=== PATIENT | male | born 1950 | race Two or more races ===

== ENCOUNTER 2021-08-24 06:05 | Inpatient (IN) | payer OTHER ==
[~2021-08-24] VITALS: Ht 172.7 cm; Wt 80.8 kg
[2021-08-24 08:46] LABS: Basophils # (auto) 0 10 ^3/uL (0-0.2); Basophils % (auto) 0.1 % (0.0-2.0); Eosinophils # (auto) 0 10 ^3/uL (0-0.8); Hematocrit 45.7 % (41.0-53.0); Hemoglobin 15.2 g/dL (13.5-17.5); Lymphocytes # (auto) 0.7 10 ^3/uL (0.4-5.4); Lymphocytes % (auto) 13.5 % (10.0-50.0); Mean Corpuscular Hemoglobin 28.5 pg (28.0-32.0); Mean Corpuscular Hgb Conc. 33.2 g/dL (32.0-36.0); Mean Corpuscular Volume 85.8 fL (80.0-100.0); Monocytes # (auto) 0.6 10 ^3/uL (0-1.3); Monocytes % (auto) 10.7 % (0.0-12.0); Neutrophils # (auto) 4.2 10 ^3/uL (1.6-8.6); Neutrophils % (auto) 75.7 % (37.0-80.0); Nucleated Red Blood Cells % 0.2 %; Red Blood Cells 5.33 10^6/uL (4.5-5.90); White Blood Cell 5.5 10^3/uL (4.4-10.8)
[2021-08-24 08:53] LABS: Anion Gap 11 (5-15); BUN/Creatinine Ratio 22.8; Blood Urea Nitrogen 29 mg/dL (7-18); Carbon Dioxide 17 mmol/L (21-32); Chloride 111 mmol/L (98-107); Glucose 109 mg/dL (74-106); Potassium 3.5 mmol/L (3.5-5.1); Sodium 139 mmol/L (136-145)
[2021-08-24 08:54] LABS: Alanine Aminotransferase 29 U/L (16-61); Albumin 2.8 g/dL (3.4-5.0); Aspartate Aminotransferase 42 U/L (15-37); Calcium 8.6 mg/dL (8.5-10.1); GFR African American 72 mL/min; GFR Non-African American 60 mL/min
[2021-08-24 08:59] LABS: Alkaline Phosphatase 64 U/L (45-117); Bilirubin, Total 0.7 mg/dL (0.2-1.0); Total Protein 7.2 g/dL (6.4-8.2)
[2021-08-24] MEDS ORDERED: NITROGLYCERIN 0.4 MG SL TAB SL PRN (14:45)
[2021-08-24] MEDS ORDERED: MORPHINE SULFATE INJECTION 2 MG/ML SYRG IV PRN (14:45)
[2021-08-24] MEDS ORDERED: LACTATED RINGER'S 1,000 ML IV ONE (16:30)
[2021-08-24] MEDS ORDERED: ONDANSETRON HCL 4 MG/2 ML VIAL IV PRN (16:30)
[2021-08-24] MEDS ORDERED: ONDANSETRON HCL 4 MG/2 ML VIAL IV ONE (16:30)
[2021-08-24] MEDS ORDERED: PANTOPRAZOLE 40 MG/10 ML VIAL INJ IV ONE (17:15)
[2021-08-24] MEDS ORDERED: FINA5TAB4 PO (17:53)
[2021-08-24] MEDS ORDERED: PANT1INJ3 IV (17:53)
[2021-08-24] MEDS ORDERED: TAMS0.4C36 PO (17:53)
[2021-08-24] MEDS ORDERED: AZIT250T8 PO (17:53)
[2021-08-24] MEDS ORDERED: WARF5TAB71 PO (17:53)
[2021-08-24] MEDS ORDERED: ASCO500T11 GT (17:53)
[2021-08-24] MEDS ORDERED: ACET250T3 PO (17:53)
[2021-08-24] MEDS ORDERED: MONT-8 OR (17:53)
[2021-08-24] MEDS ORDERED: ZINC220C10 PO (17:53)
[2021-08-24 18:28] LABS: INR 3.15 (0.9-1.15)
[2021-08-24] MEDS ORDERED: BRIM0.159 LEFTEYE (18:38)
[2021-08-24] MEDS ORDERED: DORZ2SOL LEFTEYE (18:38)
[2021-08-24 22:00] VITALS: BP 104/65
[2021-08-25] MEDS ORDERED: METOCLOPRAMIDE HCL 5MG/ml INJ 2ml VIAL IV PRN (00:15)
[2021-08-25] MEDS ORDERED: ALUM & MAG HYDROX-SIMETH LIQ(MAALOX) 30 ML PO PRN (00:15)
[2021-08-25] MEDS ORDERED: ACETAMINOPHEN 500 MG TAB PO PRN (00:15)
[2021-08-25] MEDS ORDERED: MORPHINE SULFATE INJECTION 2 MG/ML SYRG IV PRN ×2 (00:15)
[2021-08-25] MEDS ORDERED: ALBUTEROL SULF HFA 90MCG INH 200DOSE IN PRN (00:15)
[2021-08-25] MEDS ORDERED: DOCUSATE SOD 100 MG CAP PO PRN (00:15)
[2021-08-25] MEDS ORDERED: NITROGLYCERIN 0.4 MG SL TAB SL PRN (00:15)
[2021-08-25] MEDS ORDERED: SODIUM CHLORIDE 0.9% 1,000 ML IV SCH (00:15)
[2021-08-25] MEDS ORDERED: REMDESIVIR PER PHARMACY 0 ML IV SCH (00:15)
[2021-08-25] MEDS ORDERED: ACETAMINOPHEN 325 MG TAB PO PRN (00:15)
[2021-08-25] MEDS ORDERED: HYDROcodone-ACET 5/325MG TAB PO PRN (00:15)
[2021-08-25] MEDS ORDERED: TEMAZEPAM 15 MG CAP PO PRN (00:15)
[2021-08-25 01:42] LABS: Basophils # (auto) 0 10 ^3/uL (0-0.2); Basophils % (auto) 0.2 % (0.0-2.0); Eosinophils # (auto) 0 10 ^3/uL (0-0.8); Hematocrit 40.4 % (41.0-53.0); Hemoglobin 13.8 g/dL (13.5-17.5); Lymphocytes # (auto) 0.8 10 ^3/uL (0.4-5.4); Lymphocytes % (auto) 16.8 % (10.0-50.0); Mean Corpuscular Hemoglobin 29.1 pg (28.0-32.0); Mean Corpuscular Hgb Conc. 34.2 g/dL (32.0-36.0); Monocytes # (auto) 0.5 10 ^3/uL (0-1.3); Monocytes % (auto) 9.8 % (0.0-12.0); Neutrophils # (auto) 3.6 10 ^3/uL (1.6-8.6); Neutrophils % (auto) 73.2 % (37.0-80.0); Nucleated Red Blood Cells % 0.3 %; Red Blood Cells 4.76 10^6/uL (4.5-5.90); Red Cell Distribution Width 15.2 % (11.8-14.3)
[2021-08-25 01:46] LABS: Albumin 2.3 g/dL (3.4-5.0); Magnesium 2.2 mg/dL (1.6-2.6); Potassium 3.9 mmol/L (3.5-5.1)
[2021-08-25 01:53] LABS: INR 3.43 (0.9-1.15); Partial Thromboplastin Time 60.3 sec (23.6-33.0)
[2021-08-25 01:57] LABS: Bilirubin, Total 0.5 mg/dL (0.2-1.0); CRP High Sensitivity 5.18 mg/dL (< 0.3); Phosphorus 2.7 mg/dL (2.5-4.90); Total Protein 6.2 g/dL (6.4-8.2)
[2021-08-25 01:58] LABS: BUN/Creatinine Ratio 25.7
[2021-08-25 02:12] LABS: Thyroid Stimulating Hormone 1.2 uIU/mL (0.358-3.74)
[2021-08-25 05:00] VITALS: BP 108/72
[2021-08-25 06:00] VITALS: BP 97/68
[2021-08-25] MEDS ORDERED: FUROSEMIDE 20 MG/2 ML VIAL IV SCH (06:00)
[2021-08-25] MEDS: acetaZOLAMIDE 250 MG TAB PO SCH ×2 (06:20→14:12)
[2021-08-25] MEDS ORDERED: DORZOLAMIDE HCL 2% OPTH(EYE) SOL 10ML LEFTEYE SCH (10:00)
[2021-08-25] MEDS ORDERED: BUDESONIDE (INHALATION) 180 MCG IH IN SCH (10:00)
[2021-08-25] MEDS ORDERED: ASCORBIC ACID 500 MG TAB GT SCH (10:00)
[2021-08-25] MEDS ORDERED: REMDESIVIR 200 MG in NS 210ml LOADING DOSE ADULT IV ONE (10:00)
[2021-08-25] MEDS ORDERED: CHOLECALCIFEROL (VITD3) 2,000 UNIT CAP/TAB PO SCH (10:00)
[2021-08-25] MEDS ORDERED: DexAMETHasone SOD PHOS 10MG/1ML VIAL INJ IV SCH (10:00)
[2021-08-25] MEDS ORDERED: DOXYCYCLINE 100MG/250ML 250 ML IV SCH (10:00)
[2021-08-25] MEDS ORDERED: ENOXAPARIN SOD 40 MG/0.4 ML SYRINGE SC SCH (10:00)
[2021-08-25] MEDS ORDERED: IVERMECTIN 3 MG TAB PO SCH (10:00)
[2021-08-25] MEDS ORDERED: ZINC SULFATE 220mg CAP or TAB PO SCH (10:00)
[2021-08-25] MEDS ORDERED: PANTOPRAZOLE 40 MG/10 ML VIAL INJ IV SCH ×2 (10:00)
[2021-08-25] MEDS ORDERED: POTASSIUM CHL 20 Meq TABLET PO SCH (10:00)
[2021-08-25] MEDS ORDERED: FINASTERIDE 5 MG TAB PO SCH (10:00)
[2021-08-25] MEDS ORDERED: ASCORBIC ACID 1,000 MG TAB PO SCH (10:00)
[2021-08-25] MEDS ORDERED: SUCRALFATE 1 GM/10 ML ORAL SUSP PO SCH (11:30)
[2021-08-25 11:56] LABS: Urine Bacteria FEW /hpf (None Seen); Urine Blood Negative /uL (Negative); Urine Specific Gravity 1.012 (1.001-1.035); Urine WBC 28 /hpf (0 - 3)
[2021-08-25 12:09] LABS: Alcohol, Urine < 3.0 mg/dL (0-10); Amphetamine Screen, Urine NEGATIVE (NEGATIVE); Barbiturate Scree,Urine NEGATIVE (NEGATIVE); Benzodiazephine Screen, Urine NEGATIVE (NEGATIVE); Cannabinoid Screen, Urine NEGATIVE (NEGATIVE); Cocaine Screen, Urine NEGATIVE (NEGATIVE); Opiate Scree,Urine NEGATIVE (NEGATIVE); Phencyclidine Screen, Urine NEGATIVE (NEGATIVE)
[2021-08-25 13:00] VITALS: BP 95/69
[2021-08-25] MEDS ORDERED: TAMSULOSIN HYDROCHLORIDE 0.4 MG CAP PO SCH (18:00)
[2021-08-25] MEDS ORDERED: MONTELUKAST SODIUM 10 MG TAB PO SCH (22:00)
[2021-08-26] MEDS ORDERED: REMDESIVIR 100mg 100 MG in SODIUM CHL 0.9% 230 ML IV SCH (15:00)
== END 2021-08-25 17:01 | disposition left against medical advice (07) | DRG 177 ==
LOC: ER 06:05 → TELE 14:36 → TELE-EAST 16:48
PROVIDERS: ADMIT Hospitalist; ATTEND Hospitalist
PROC: XW033E5 Introduction of Remdesivir Anti-infective into Peripheral Vein, Percutaneous Approach, New Technology Group 5 (ICD-10-PCS; principal; 2021-08-25)
DX: U07.1 COVID-19 (principal); J96.01 Acute respiratory failure with hypoxia; J12.82 Pneumonia due to coronavirus disease 2019; E43 Unspecified severe protein-calorie malnutrition; C15.9 Malignant neoplasm of esophagus, unspecified; E87.2 Acidosis; N39.0 Urinary tract infection, site not specified; N17.9 Acute kidney failure, unspecified; N13.8 Other obstructive and reflux uropathy; K92.0 Hematemesis; E86.0 Dehydration; E87.8 Other disorders of electrolyte and fluid balance, not elsewhere classified; F17.210 Nicotine dependence, cigarettes, uncomplicated; H40.9 Unspecified glaucoma; N18.2 Chronic kidney disease, stage 2 (mild); Z53.29 Procedure and treatment not carried out because of patient's decision for other reasons; N40.1 Benign prostatic hyperplasia with lower urinary tract symptoms; K29.00 Acute gastritis without bleeding; K29.50 Unspecified chronic gastritis without bleeding; Z68.26 Body mass index [BMI] 26.0-26.9, adult; Z79.01 Long term (current) use of anticoagulants; Z85.01 Personal history of malignant neoplasm of esophagus; Z86.718 Personal history of other venous thrombosis and embolism; Z71.6 Tobacco abuse counseling
CPT/HCPCS: 36415; 71045; 80053; 80061; 80307; 81001; 82306; 82728; 83036; 83605; 83615; 83735; 84100; 84443; 84484; 85025; 85379; 85610; 85730; 86141; 86850; 86900; 86901; 87040; 87086; 87088; 87186; 87426; 96374; C9113; G0378; J1100; J3490